=== PATIENT | male | born 1965 | race African-American/Black ===

== ENCOUNTER 2019-05-01 06:39 | Emergency (ER) | payer OTHER, SELFPAY ==
[~2019-05-01] VITALS: Ht 193 cm; Wt 132.9 kg
[2019-05-01] MEDS ORDERED: KETOROLAC 30 MG/1 ML IM ONE (07:00)
--- NOTE | 2019-05-01 07:06 | NUR ---
assumed care of pt from rex ricci. as
[2019-05-01] MEDS ORDERED: KETOROLAC 30 MG/1 ML ONE (07:08)
--- NOTE | 2019-05-01 07:39 | NUR ---
still in xr. as
[2019-05-01 07:45] VITALS: BP 130/92
--- NOTE | 2019-05-01 07:47 | NUR ---
meds per mar. c/o L rib/chest wall pain worse on palp. bandaid to knee. vss. scans pending. call rodriguez in reach. NAD. as
--- NOTE | 2019-05-01 07:48 | NUR ---
scans wnl. [email or web address].as
== END 2019-05-01 08:19 | disposition home or self-care (01) ==
LOC: ED 07:50
DX: S20.212A Contusion of left front wall of thorax, initial encounter (principal); S80.01XA Contusion of right knee, initial encounter; I10 Essential (primary) hypertension; E11.9 Type 2 diabetes mellitus without complications; Y04.8XXA Assault by other bodily force, initial encounter; Y93.89 Activity, other specified; Y92.89 Other specified places as the place of occurrence of the external cause; Y99.0 Civilian activity done for income or pay
CPT/HCPCS: 71101; 73564; 96372; 99283; J1885